=== PATIENT | male | born 1945 | race Caucasian/White ===

== ENCOUNTER → 2021-05-10 | Outpatient (CLI) | payer MEDICARE ==
[~2021-05-10] MED LIST: BYSTOLIC20 MG; EXFORGE; HYDROCHLOROTHIA25 MG; JANUVIA100 MG; LANTUS; LOVASTATIN40 MG; METFORMIN HCL500 MG; VITAMIN B-12500 MCG
== END ==
LOC: RAD 12:00
PROVIDERS: ATTEND Internal Medicine
DX: K59.00 Constipation, unspecified (principal); R10.10 Upper abdominal pain, unspecified
CPT/HCPCS: 74019

== ENCOUNTER 2021-07-22 12:20 | Emergency (ER) | payer MEDICARE ==
[~2021-07-22] VITALS: Ht 160 cm; Wt 69.9 kg
== END 2021-07-22 13:14 | disposition home or self-care (01) ==
LOC: ER 12:30
DX: S81.812A Laceration without foreign body, left lower leg, initial encounter (principal); W45.8XXA Other foreign body or object entering through skin, initial encounter; Y92.008 Other place in unspecified non-institutional (private) residence as the place of occurrence of the external cause; I10 Essential (primary) hypertension; E11.9 Type 2 diabetes mellitus without complications; I50.9 Heart failure, unspecified
CPT/HCPCS: 99283

== ENCOUNTER → 2021-09-11 | Outpatient (CLI) | payer MEDICARE | LOC: RAD 12:06 | PROVIDERS: ATTEND Internal Medicine Nephrology | DX: Z11.1 Encounter for screening for respiratory tuberculosis (principal); Z49.01 Encounter for fitting and adjustment of extracorporeal dialysis catheter | CPT/HCPCS: 71046 ==

== ENCOUNTER 2021-10-06 10:23 | Emergency (ER) | payer MEDICARE ==
[~2021-10-06] VITALS: Ht 160 cm; Wt 69.0 kg
[2021-10-06] MEDS ORDERED: VALTREX500 MG PO (10:53)
== END 2021-10-06 11:04 | disposition home or self-care (01) ==
LOC: FSED 10:40
DX: B02.9 Zoster without complications (principal); B00.89 Other herpesviral infection; I12.0 Hypertensive chronic kidney disease with stage 5 chronic kidney disease or end stage renal disease; E11.22 Type 2 diabetes mellitus with diabetic chronic kidney disease; N18.6 End stage renal disease; Z99.2 Dependence on renal dialysis; I50.9 Heart failure, unspecified; E78.5 Hyperlipidemia, unspecified; F41.9 Anxiety disorder, unspecified
CPT/HCPCS: 99282

== ENCOUNTER 2024-04-27 21:38 | Inpatient (IN) | payer MEDICARE ==
[~2024-04-27] VITALS: Ht 160 cm; Wt 63.0 kg
[~2024-04-27 21:38] MED LIST changes: +ALLOPURINOL100 MG PO; +AMLODIPINE BESY10 MG PO; +ATIVAN1 MG PO; +BASAGLAR K100 UNIT/1 SC; +FINASTERIDE5 MG PO; +FLOMAX0.4 MG PO; +HUMALOG KW200 UNIT/1 SC; +METOPROLOL SUCC50 MG PO; +RENA-VITE RX T1 EACH; +RENA-VITE TABL0.8 MG; +TYLENOL325 MG PO; +VALTREX500 MG PO
[2024-04-27] MEDS: ACETAMINOPHEN 325 MG TAB PO ONE (22:52)
[2024-04-28] VITALS (25 sets, daily range): BP systolic 132–175; BP diastolic 64–96; PULSE 88–114; RESP 15–22; TEMP 98.1–101.4; O2SAT 94–100
[2024-04-28] MEDS: METOPROLOL TARTRATE INJ 1 MG/ML VIAL IV ONE (00:14)
[2024-04-28] MEDS: ASPIRIN 325 MG TAB PO ONE (00:14)
[2024-04-28] MEDS: MUPIROCIN 2% OINT 22 GM TUBE TOP SCH (01:30)
[2024-04-28] MEDS ORDERED: LORAZEPAM 0.5 MG TAB PO PRN (01:30)
[2024-04-28] MEDS ORDERED: DEXTROSE 50% SYRINGE 50 ML IV PRN (02:30)
[2024-04-28] MEDS: ASPIRIN 81 MG CHEW TAB PO ONE (03:02)
[2024-04-28] MEDS: LORAZEPAM 0.5 MG TAB PO SCH (03:17)
[2024-04-28 06:52] LABS: TROPONIN I 22.62 ng/mL (0-0.300)
[2024-04-28 07:27] LABS: BASOPHILS % 0.4 % (0.0-1.0); EOSINOPHILS % 0.6 % (0.0-6.0); HEMATOCRIT 30.2 % (38.2-49.6); HEMOGLOBIN 10.1 g/dL (14.0-18.0); LYMPHOCYTES # (AUTO) 0.8 (1.0-3.2); LYMPHOCYTES % 11.8 % (18.0-39.1); MEAN CORPUSCULAR HEMOGLOBIN 35.7 pg (28-32); MEAN CORPUSCULAR HGB CONC 33.4 g/dL (31-35); MEAN CORPUSCULAR VOLUME 106.7 fL (81-99); MONOCYTES # (AUTO) 0.6 (0.2-0.8); MONOCYTES % 9.3 % (4.4-11.3); NEUTROPHILS # (AUTO) 5.3 (2.1-6.9); NEUTROPHILS % 77.5 % (38.7-80.0); PLATELET COUNT 125 x10e3/uL (140-360); RED BLOOD COUNT 2.83 x10e6/uL (4.3-5.7); RED CELL DISTRIBUTION WIDTH 14.9 % (11.7-14.4); WHITE BLOOD COUNT 6.78 x10e3/uL (4.8-10.8)
[2024-04-28 07:45] LABS: ANION GAP 17.5 mmol/L (8-16); CALCIUM 9.5 mg/dL (8.4-10.2); CREATININE, SERUM 4.31 mg/dL (0.72-1.25); POTASSIUM 4.5 mmol/L (3.5-5.1)
[2024-04-28] MEDS: INSULIN LISPRO 100 UNIT/1 ML 3ML VIAL SQ SCH (08:35)
[2024-04-28] MEDS ORDERED: HEPARIN SOD/DEXTROSE 5% 25000 UNIT/250 ML BAG IV SCH (12:45)
[2024-04-28] MEDS ORDERED: HEPARIN 25,000 UNIT/D5W 250ML 25,000 UNIT in DEXTROSE 5% 250ML 250 ML IV SCH (12:45)
[2024-04-28] MEDS ORDERED: ATORVASTATIN CA20 MG PO (13:33)
[2024-04-28] MEDS ORDERED: PLAVIX75 MG PO (13:34)
[2024-04-28] MEDS ORDERED: ASPIRIN81 MG PO (13:34)
[2024-04-28 13:37] LABS: INR 1.01
[2024-04-28 13:38] LABS: PARTIAL THROMBOPLASTIN TIME 35.6 seconds (23.8-35.5)
[2024-04-28] MEDS ORDERED: LISINOPRIL10 MG PO (13:39)
[2024-04-28] MEDS ORDERED: SODIUM CHLORIDE 0.9% 1000ML 2,000 ML ONE (14:01)
[2024-04-28 14:13] LABS: TROPONIN I 31.479 ng/mL (0-0.300)
[2024-04-28] MEDS: CLOPIDOGREL BISULFATE 75 MG TAB PO ONE (14:20)
[2024-04-28] MEDS: HEPARIN SOD (PORCINE) 5,000 UNIT/ML VIAL IV ONE (14:21)
[2024-04-28] MEDS: HEPARIN 25,000 UNIT/D5W 250ML 250 ML IV SCH (14:22)
[2024-04-28] MEDS: ACETAMINOPHEN 325 MG TAB PO PRN (17:48)
[2024-04-28] MEDS ORDERED: TAMSULOSIN HCL 0.4 MG CAP PO SCH (18:00)
[2024-04-28] MEDS: METOPROLOL SUCCINATE 50 MG TAB XL PO SCH (18:00)
[2024-04-28] MEDS: ATORVASTATIN 40 MG TAB PO SCH (20:21)
[2024-04-28] MEDS: TAMSULOSIN HCL 0.4 MG CAP PO SCH (20:21)
[2024-04-29] VITALS (19 sets, daily range): BP systolic 88–154; BP diastolic 60–103; PULSE 90–113; RESP 14–20; TEMP 97.7–99.3; O2SAT 94–100
[2024-04-29] MEDS: ONDANSETRON HCL INJ 2MG/ML 2ML 2 MG/ML VIAL IV PRN (02:20)
[2024-04-29 05:15] LABS: HEPATITIS B CORE AB TOTAL Negative; HEPATITIS B SURFACE AG (P) Negative
[2024-04-29 06:21] LABS: CHOL/HDL RATIO 3.2 (3.9-4.7)
[2024-04-29 06:47] LABS: TROPONIN I 20.378 ng/mL (0-0.300)
[2024-04-29] MEDS: ASPIRIN 81 MG CHEW TAB PO SCH (09:26)
[2024-04-29] MEDS: ALLOPURINOL 100 MG TAB PO SCH (09:26)
[2024-04-29] MEDS: CLOPIDOGREL BISULFATE 75 MG TAB PO SCH (09:26)
[2024-04-29] MEDS: FINASTERIDE 5 MG TAB PO SCH (09:26)
[2024-04-29] MEDS: AZITHROMYCIN 250 MG TAB PO SCH (11:34)
[2024-04-30] VITALS (11 sets, daily range): BP systolic 116–136; BP diastolic 40–76; PULSE 75–98; RESP 14–20; TEMP 97–98.6; O2SAT 96–100
[2024-04-30 06:12] LABS: BASOPHILS % 0.5 % (0.0-1.0); EOSINOPHILS % 0.3 % (0.0-6.0); HEMATOCRIT 30.5 % (38.2-49.6); LYMPHOCYTES # (AUTO) 1.3 (1.0-3.2); LYMPHOCYTES % 22.3 % (18.0-39.1); MEAN CORPUSCULAR HEMOGLOBIN 35.3 pg (28-32); MEAN CORPUSCULAR HGB CONC 32.8 g/dL (31-35); MEAN CORPUSCULAR VOLUME 107.8 fL (81-99); MONOCYTES % 16.9 % (4.4-11.3); NEUTROPHILS # (AUTO) 3.5 (2.1-6.9); NEUTROPHILS % 59.8 % (38.7-80.0); PLATELET COUNT 137 x10e3/uL (140-360); RED BLOOD COUNT 2.83 x10e6/uL (4.3-5.7); RED CELL DISTRIBUTION WIDTH 14.6 % (11.7-14.4); WHITE BLOOD COUNT 5.91 x10e3/uL (4.8-10.8)
[2024-04-30 07:06] LABS: ANION GAP 21.9 mmol/L (8-16); CALCIUM 9.5 mg/dL (8.4-10.2); CREATININE, SERUM 4.75 mg/dL (0.72-1.25); POTASSIUM 4.9 mmol/L (3.5-5.1)
[2024-04-30] MEDS ORDERED: VERAPAMIL HCL 2.5 MG/ML 2 ML VIAL ONE (12:25)
[2024-04-30] MEDS ORDERED: HEPARIN SOD (PORCINE) 1000 UNIT/ML 30ML ONE (12:25)
[2024-04-30] MEDS ORDERED: LIDOCAINE HCL 2% LOCAL 20 ML VIAL ONE (12:25)
[2024-04-30] MEDS ORDERED: IOPAMIDOL 370 MG/ML 100 ML INFUS..BTL INJ ONE (12:26)
[2024-04-30] MEDS ORDERED: NITROGLYCERIN/D5W 200 MCG/ML 250 ML ONE (12:26)
[2024-04-30] MEDS ORDERED: HEPARIN SOD/SOD CHLORIDE 2,000 ML ONE (12:26)
[2024-04-30] MEDS ORDERED: SODIUM CHLORIDE 0.9% 1000ML 1,000 ML ONE (12:26)
[2024-04-30] MEDS ORDERED: FENTANYL CITRATE/PF 100MCG/2 ML INJ ONE (13:43)
[2024-04-30] MEDS ORDERED: MIDAZOLAM HCL 2 MG/2 ML VIAL ONE (13:43)
== END 2024-04-30 20:33 | disposition short-term general hospital (02) | DRG 280 ==
LOC: FSED 21:48 → ERHOLD 04-28 01:45 → ICU 04-28 02:54 → MED/SURG3 04-29 18:12
PROVIDERS: ADMIT Internal Medicine; ATTEND Internal Medicine
PROC: 4A023N7 Measurement of Cardiac Sampling and Pressure, Left Heart, Percutaneous Approach (ICD-10-PCS; principal; 2024-04-30)
PROC: B2111ZZ Fluoroscopy of Multiple Coronary Arteries using Low Osmolar Contrast (ICD-10-PCS; 2024-04-30)
PROC: B2151ZZ Fluoroscopy of Left Heart using Low Osmolar Contrast (ICD-10-PCS; 2024-04-30)
DX: I21.4 Non-ST elevation (NSTEMI) myocardial infarction (principal); I50.23 Acute on chronic systolic (congestive) heart failure; J18.9 Pneumonia, unspecified organism; N18.6 End stage renal disease; I13.2 Hypertensive heart and chronic kidney disease with heart failure and with stage 5 chronic kidney disease, or end stage renal disease; T82.855A Stenosis of coronary artery stent, initial encounter; I25.10 Atherosclerotic heart disease of native coronary artery without angina pectoris; E11.22 Type 2 diabetes mellitus with diabetic chronic kidney disease; J20.9 Acute bronchitis, unspecified; J02.9 Acute pharyngitis, unspecified; Z79.4 Long term (current) use of insulin; Z99.2 Dependence on renal dialysis; E78.5 Hyperlipidemia, unspecified; I35.0 Nonrheumatic aortic (valve) stenosis; R00.0 Tachycardia, unspecified; Z95.5 Presence of coronary angioplasty implant and graft; Z11.52 Encounter for screening for COVID-19; Y83.1 Surgical operation with implant of artificial internal device as the cause of abnormal reaction of the patient, or of later complication, without mention of misadventure at the time of the procedure
CPT/HCPCS: 0223U; 36415; 71046; 76937; 80048; 80061; 80076; 81003; 82550; 82553; 82948; 83605; 84484; 85025; 85610; 85730; 86704; 86705; 86706; 87040; 87340; 93005; 93458; 94799; 99152; 99284; C1769; C1887; J0692; J1644; J2001; J2250; J2405; J7030; Q9967